=== PATIENT | female | born 1965 | race African-American/Black ===

== ENCOUNTER 2017-02-11 09:21 | Emergency (ER) | payer MEDICAID ==
[~2017-02-11] VITALS: Ht 165.1 cm; Wt 143.5 kg
[2017-02-11] MEDS ORDERED: LISI-618 PO (09:36)
[2017-02-11] MEDS ORDERED: HYDR25TA PO (09:36)
[2017-02-11] MEDS ORDERED: ACETAMINOPHEN 325 MG TABLET PO ONE (10:30)
[2017-02-11 11:48] VITALS: BP 142/88
== END 2017-02-11 11:50 | disposition home or self-care (01) ==
LOC: EMS 09:25
DX: S93.401A Sprain of unspecified ligament of right ankle, initial encounter (principal); I10 Essential (primary) hypertension; X58.XXXA Exposure to other specified factors, initial encounter; Y93.89 Activity, other specified; Y92.89 Other specified places as the place of occurrence of the external cause; Y99.8 Other external cause status
CPT/HCPCS: 99284